=== PATIENT | male | born 1980 | race African-American/Black ===

== ENCOUNTER 2017-11-13 10:45 | Emergency (ER) | payer SELFPAY ==
[2017-11-13] MEDS ORDERED: Lorazepam 2 MG/ML VIAL ONE (11:08)
== END 2017-11-13 13:40 | disposition home or self-care (01) ==
LOC: ERS 10:45
DX: F16.129 Hallucinogen abuse with intoxication, unspecified (principal)
CPT/HCPCS: 36416; 96372; J2060